=== PATIENT | male | born 1965 | race African-American/Black ===

== ENCOUNTER 2020-08-05 10:18 | Emergency (ER) | payer SELFPAY ==
[2020-08-05 19:51] LABS: SARS-CoV-2 PCR by NAA Not Detected (NotDetected)
== END 2020-08-05 11:43 | disposition home or self-care (01) ==
LOC: ERS 10:18
DX: Z20.822 Contact with and (suspected) exposure to COVID-19 (principal)
CPT/HCPCS: 99283; U0003; U0005